=== PATIENT | male | born 2000 | race Caucasian/White ===

== ENCOUNTER 2023-11-06 20:46 | Observation (INO) ==
[2023-11-06 21:49] LABS: Adenovirus PCR Not Detected (NotDetected); Bordetella parapertussis PCR Not Detected (NotDetected); Bordetella pertussis PCR Not Detected (NotDetected); Chlamydia pneumoniae PCR Not Detected (NotDetected); Coronavirus 229E PCR Not Detected (NotDetected); Coronavirus CoV-2 (COVID19)PCR Not Detected (NotDetected); Coronavirus HKU1 PCR Not Detected (NotDetected); Coronavirus NL63 PCR Not Detected (NotDetected); Coronavirus OC43PCR Not Detected (NotDetected); Human Metapneumovirus PCR Not Detected (NotDetected); Influenza A PCR Not Detected (NotDetected); Influenza B PCR Not Detected (NotDetected); Mycoplasma pneumoniae PCR Not Detected (NotDetected); Parainfluenza Virus 1 PCR Not Detected (NotDetected); Parainfluenza Virus 2 PCR Not Detected (NotDetected); Parainfluenza Virus 3 PCR Not Detected (NotDetected); Parainfluenza Virus 4 PCR Not Detected (NotDetected); Respiratory Syncytial VirusPCR Not Detected (NotDetected); Rhinovirus/Enterovirus PCR Not Detected (NotDetected)
[2023-11-06] MEDS: ACETAMINOPHEN 500 MG TAB PO PRN (22:13)
[2023-11-06] MEDS: SODIUM CHLORIDE 0.9% 1,000 ML IV ONE (23:48)
--- NOTE | 2023-11-07 00:19 | CT Scan Report ---
Exam(s): CT HEAD Without Contrast EXAM: CT Head Without Intravenous Contrast CLINICAL HISTORY: Reason for exam: chi. TECHNIQUE: Axial computed tomography images of the head/brain without intravenous contrast. Automated exposure control was utilized for the study. A dose lowering technique was utilized adhering to the principles of ALARA. COMPARISON: None. FINDINGS: Brain: No mass effect or acute infarct. No acute hemorrhage. Ventricles: No hydrocephalus or midline shift. Bones/joints: No skull fracture. Soft tissues: No scalp hematoma. Sinuses: Mild bilateral ethmoid mucosal thickening, otherwise, clear. Mastoid air cells: No mastoid effusion. IMPRESSION: 1. No bleed, skull fracture or acute intracranial abnormality. Electronically signed by: Mayra Ríos M.D. 11/07/23 00:18 AM
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
[2023-11-07 00:35] LABS: Basophils # (auto) 0.07 K/uL (0.00-0.20); Basophils % (auto) 0.4 %; Eosinophils # (auto) 0.02 K/uL (0.00-0.50); Eosinophils % (auto) 0.1 %; Hematocrit (blood only) 39.6 % (42.0-52.0); Immature Granulocytes # (auto) 0.14 K/uL (0.01-0.20); Immature Granulocytes % (auto) 0.8 %; Lymphocytes # (auto) 1.18 K/uL (1.20-3.40); Lymphocytes % (auto) 6.9 %; Mean Corpuscular Hemoglobin 32.1 pg (25.0-34.0); Mean Corpuscular Hgb Conc 35.4 g/dL (32.0-36.0); Mean Corpuscular Volume 90.8 fL (80.0-100.0); Mean Platelet Volume 10.7 fL (9.4-12.4); Neutrophils # (auto) 14.44 K/uL (1.40-6.50); Neutrophils % (auto) 84.8 %; Platelet Count 180 K/uL (130-400); RDW Coefficient of Variation 12.8 % (11.5-14.5); RDW Standard Deviation 42.4 fL (36.4-46.3); Red Blood Count 4.36 M/uL (4.70-6.10); White Blood Count 17.05 K/ul (4.8-10.8)
[2023-11-07 00:49] LABS: Albumin Globulin Ratio 1.3 (0.9-2); Albumin Level 4.5 gm/dl (3.4-5.0); BUN Creatinine Ratio 10.2 (10-20); Bilirubin,Total 0.7 mg/dl (0.2-1.0); Creatinine Clr Calc Pharmacy 105.9 ml/min; Est GFR (African American) 112.3 ml/min; Est GFR (Non-African American) 96.9 ml/min; Globulin 3.5 gm/dl (2.5-4.0); Magnesium 1.5 mg/dl (1.7-2.4); Potassium 3.5 mmol/L (3.5-5.1)
[2023-11-07] MEDS: KETOROLAC TROMETHAMINE 15 MG/ML VIAL IV ONE (01:10)
[2023-11-07] MEDS: dexAMETHasone**PF** 10 MG/ML VIAL IV ONE (01:12)
[2023-11-07] MEDS: MAGNESIUM SULFATE / D5W 1 GM/100 ML BAG IV STA (01:43)
[2023-11-07] MEDS: CEFEPIME 2,000 MG/20 ML VIAL IV STA (03:12)
[2023-11-07] MEDS: SODIUM CHLORIDE 0.9% 1,000 ML IV ONE (03:12)
[2023-11-07 04:23] LABS: Appearance Urine Clear (Clear); Bacteria Urine Automated None Seen (None Seen); Bilirubin Urine Negative (Negative); Blood Urine Trace (Negative); Cast Urine Automated 0-2 /lpf (0-2); Color Urine Yellow; Epithelial Cell Urine Auto 0-2 /hpf (0-2); Glucose Urine UA Negative (Negative); Ketones Urine Negative (Negative); Leukocyte Esterase Urine Negative (Negative); Nitrite Urine Negative (Negative); Protein Urine Negative (Negative); RBC Urine Automated 0-2 /hpf (0-2); Specific Gravity Urine 1.008 (1.000-1.030); Urobilinogen Urine Negative (Negative); WBC Urine Automated 0-5 /hpf (0-5); pH Urine 6.5 (4.5-7.5)
--- NOTE | 2023-11-07 05:00 | History & Physical Report ---
Date of Service November 07, 2023 Assessment & Plan (1) Fever: (2) Acute sore throat: (3) CHI (closed head injury): (4) Neutrophilic leukocytosis: (5) Fatigue: (6) Elevated procalcitonin: Plan Febrile illness/acute sore throat/fatigue/neutrophilic leukocytosis/elevated procalcitonin- Meets SIRS criteria Calcitonin 11.0 WBC 17.05 with left shift From the ED received the following: Dexamethasone 10 mg IV, cefepime 2 g IV,Toradol Toradol 10 mg IV and NSS 2 L fluid bolus Patient reports that he is beginning to feel significantly improved CT scan of soft tissues of neck to assess for possible abscess/phlegmon Admit for observation due to recent closed head injury, with normal-appearing CT scan of head Azithromycin 500 mg IV daily Acetaminophen 600 mg by mouth every 6 hours as needed for mild pain or fever Admit to medical surgical bed for observation Hypomagnesemia- Magnesium 1.5 on admission Received IV supplementation from the ED. Follow-up laboratories in the a.m. History of Present Illness Chief Complaint: The patient presents to the emergency department with severe headache, sore throat, fever and history of closed head injury Primary Care Provider: [facility] The patient is a 23-year-old male with no significant past medical history, who reports that when he was at the [employer] football game last week, he had fallen and landed on his head. he had no symptoms develop until about 4 days later, when he developed a headache, and since that time, has gradually developed fevers, chills and sore throat. He does have an active social life, but denies any direct illness exposures. He typically is a healthy person otherwise Past Med/Surg History Social History Smoking Status: Never smoker Preferred Language: Azeri Feels Safe at Home: Yes Review of Systems Review of Systems: The patient denies chest pain, palpitations, shortness of breath, dyspnea on exertion, cough, lower extremity swelling, nausea, vomiting, diarrhea , constipation, abdominal pain, pelvic pain, blood in urine or stool, dysuria, urinary frequency or urgency, lightheadedness, dizziness, memory loss, loss of consciousness, rash, abnormal bruising or bleeding, imbalance, focal weakness, numbness or tingling in arms or legs, generalized arthralgias or myalgias, back or neck pain, or night sweats. The review of systems is otherwise negative other than for that already noted above, and at least 10 systems have been reviewed. Physical Exam Physical Exam: The patient is awake, alert and oriented 3, well developed and well nourished, normocephalic and atraumatic, lying in bed and in no acute distress. HEENT--PERRL, EOMI, mucous membranes and oropharynx normal Neck--supple. No JVD. No bruits. Thyroid normal, trachea midline, no adenopathy. Heart--normal S1 and S2. No murmurs, rubs or gallops. Lungs--clear bilaterally, no respiratory distress, no accessory muscle use. Abdomen--normal bowel sounds and soft. Nontender. Nondistended, no hernias or masses, no organomegaly. Extremities--no cyanosis or clubbing. No edema. There are good distal pulses b/l. Dermatologic--normal skin turgor, normal color, no abnormal lymph nodes, no rash. Neurologic--cranial nerves II through XII grossly intact. Rheumatologic--normal range of motion. Psychiatric--normal affect. Results & Data Results & Data Vital Signs (Past 12 Hours) Vital Signs Temp Pulse Pulse Resp BP BP Pulse Ox 11/07/23 04:00 70 22 119/64 96 11/07/23 03:30 77 22 116/66 96 11/07/23 03:00 81 23 123/81 95 11/07/23 01:31 84 18 128/70 94 11/07/23 00:30 80 16 115/65 96 11/07/23 00:00 88 18 124/69 96 11/06/23 22:14 37.8 C H 11/06/23 20:48 39.4 C H 107 H 19 122/76 96 O2 Del Method 11/07/23 04:00 Room Air 11/07/23 03:30 Room Air 11/07/23 03:00 Room Air 11/07/23 01:31 Room Air 11/07/23 00:30 Room Air 11/07/23 00:00 Room Air 11/06/23 22:14 11/06/23 20:48 Room Air Laboratory Results Laboratory Results WBC 17.05 K/ul (4.8-10.8) H 11/06/23 23:50 RBC 4.36 M/uL (4.70-6.10) L 11/06/23 23:50 Hgb 14.0 g/dl (14.0-18.0) 11/06/23 23:50 Hct 39.6 % (42.0-52.0) L 11/06/23 23:50 MCV 90.8 fL (80.0-100.0) 11/06/23 23:50 MCH 32.1 pg (25.0-34.0) 11/06/23 23:50 MCHC 35.4 g/dL (32.0-36.0) 11/06/23 23:50 RDW Std Deviation 42.4 fL (36.4-46.3) 11/06/23 23:50 RDW Coeff of Darryl 12.8 % (11.5-14.5) 11/06/23 23:50 Plt Count 180 K/uL (130-400) 11/06/23 23:50 MPV 10.7 fL (9.4-12.4) 11/06/23 23:50 Immature Gran % (Auto) 0.8 % 11/06/23 23:50 Neut % (Auto) 84.8 % 11/06/23 23:50 Lymph % (Auto) 6.9 % 11/06/23 23:50 [place] % (Auto) 7.0 % 11/06/23 23:50 Eos % (Auto) 0.1 % 11/06/23 23:50 Baso % (Auto) 0.4 % 11/06/23 23:50 Neut # (Auto) 14.44 K/uL (1.40-6.50) H 11/06/23 23:50 Lymph # (Auto) 1.18 K/uL (1.20-3.40) L 11/06/23 23:50 [place] # (Auto) 1.20 K/uL (0.11-0.59) H 11/06/23 23:50 Eos # (Auto) 0.02 K/uL (0.00-0.50) 11/06/23 23:50 Baso # (Auto) 0.07 K/uL (0.00-0.20) 11/06/23 23:50 Immature Gran # (Auto) 0.14 K/uL (0.01-0.20) 11/06/23 23:50 Sodium 132 mmol/L (136-145) L 11/06/23 23:50 Potassium 3.5 mmol/L (3.5-5.1) 11/06/23 23:50 Chloride 96 mmol/L (98-107) L 11/06/23 23:50 Carbon Dioxide 27 mmol/L (21-32) 11/06/23 23:50 Anion Gap 9 (3-11) 11/06/23 23:50 BUN 11 mg/dl (6-23) 11/06/23 23:50 Creatinine 1.08 mg/dl (0.6-1.4) 11/06/23 23:50 Est Cr Clr Drug Dosing 105.9 ml/min 11/06/23 23:50 Est GFR ( Amer) 112.3 ml/min 11/06/23 23:50 Est GFR (Non-Af Amer) 96.9 ml/min 11/06/23 23:50 BUN/Creatinine Ratio 10.2 (10-20) 11/06/23 23:50 Glucose 112 mg/dl (70-99(Fasting)) H 11/06/23 23:50 Lactate 0.8 mmol/L (0.4-2.0) 11/07/23 02:54 Calcium 10.0 mg/dl (8.6-10.3) 11/06/23 23:50 Magnesium 1.5 mg/dl (1.7-2.4) L 11/06/23 23:50 Total Bilirubin 0.7 mg/dl (0.2-1.0) 11/06/23 23:50 AST 20 U/L (13-39) 11/06/23 23:50 ALT 16 U/L (7-52) 11/06/23 23:50 Alkaline Phosphatase 36 U/L (34-104) 11/06/23 23:50 Troponin I High Sens 5.0 pg/ml (0-20) 11/06/23 23:50 Total Protein 8.0 gm/dl (6.0-8.3) 11/06/23 23:50 Albumin 4.5 gm/dl (3.4-5.0) 11/06/23 23:50 Globulin 3.5 gm/dl (2.5-4.0) 11/06/23 23:50 Albumin/Globulin Ratio 1.3 (0.9-2) 11/06/23 23:50 Lipase 7 U/L (11-82) L 11/06/23 23:50 Procalcitonin 11.00 ng/ml (0-0.5) H 11/06/23 23:50 Urine Color Yellow 11/07/23 04:08 Urine Appearance Clear (Clear) 11/07/23 04:08 Urine pH 6.5 (4.5-7.5) 11/07/23 04:08 Ur Specific [place] 1.008 (1.000-1.030) 11/07/23 04:08 Urine Protein Negative (Negative) 11/07/23 04:08 Urine Glucose (UA) Negative (Negative) 11/07/23 04:08 Urine Ketones Negative (Negative) 11/07/23 04:08 Urine Blood Trace (Negative) H 11/07/23 04:08 Urine Nitrite Negative (Negative) 11/07/23 04:08 Urine Bilirubin Negative (Negative) 11/07/23 04:08 Urine Urobilinogen Negative (Negative) 11/07/23 04:08 Ur Leukocyte Esterase Negative (Negative) 11/07/23 04:08 Urine WBC (Auto) 0-5 /hpf (0-5) 11/07/23 04:08 Urine RBC (Auto) 0-2 /hpf (0-2) 11/07/23 04:08 U Hyaline Cast (Auto) 0-2 /lpf (0-2) 11/07/23 04:08 U Epithel Cells (Auto) 0-2 /hpf (0-2) 11/07/23 04:08 Urine Bacteria (Auto) None Seen (None Seen) 11/07/23 04:08 Adenovirus (PCR) Not Detected (NotDetected) 11/06/23 20:54 Anaplasma Smear Cancelled 11/06/23 23:50 Anaplasma Smear See Comment 11/06/23 23:50 Babesia Smear Cancelled 11/06/23 23:50 Babesia Smear See Comment 11/06/23 23:50 B. pertussis DNA (PCR) Not Detected (NotDetected) 11/06/23 20:54 B.parapertussis DNA PCR Not Detected (NotDetected) 11/06/23 20:54 Lyme Disease Screen Negative (Negative) 11/06/23 23:50 C. pneumoniae DNA (PCR) Not Detected (NotDetected) 11/06/23 20:54 Coronavirus OC43 (PCR) Not Detected (NotDetected) 11/06/23 20:54 Coronavirus HKU1 (PCR) Not Detected (NotDetected) 11/06/23 20:54 Coronavirus 229E (PCR) Not Detected (NotDetected) 11/06/23 20:54 SARS-CoV-2 (PCR) Not Detected (NotDetected) 11/06/23 20:54 Coronavirus NL63 (PCR) Not Detected (NotDetected) 11/06/23 20:54 Monoscreen Negative (Negative) 11/06/23 23:50 Human Metapneumovir PCR Not Detected (NotDetected) 11/06/23 20:54 Influenza Type A (PCR) Not Detected (NotDetected) 11/06/23 20:54 Influenza Type B (PCR) Not Detected (NotDetected) 11/06/23 20:54 M. pneumoniae (PCR) Not Detected (NotDetected) 11/06/23 20:54 Parainfluenza 1 (PCR) Not Detected (NotDetected) 11/06/23 20:54 Parainfluenza 2 (PCR) Not Detected (NotDetected) 11/06/23 20:54 Parainfluenza 3 (PCR) Not Detected (NotDetected) 11/06/23 20:54 Parainfluenza 4 (PCR) Not Detected (NotDetected) 11/06/23 20:54 RSV (PCR) Not Detected (NotDetected) 11/06/23 20:54 Entero/Rhino (PCR) Not Detected (NotDetected) 11/06/23 20:54 Group A Strep (PCR) NOT DETECTED (NotDetected) 11/07/23 00:[address] 11/06/23 23:22 Exam(s): CT HEAD Without Contrast EXAM: CT Head Without Intravenous Contrast CLINICAL HISTORY: Reason for exam: chi. TECHNIQUE: Axial computed tomography images of the head/brain without intravenous contrast. Automated exposure control was utilized for the study. A dose lowering technique was utilized adhering to the principles of ALARA. COMPARISON: None. FINDINGS: Brain: No mass effect or acute infarct. No acute hemorrhage. Ventricles: No hydrocephalus or midline shift. Bones/joints: No skull fracture. Soft tissues: No scalp hematoma. Sinuses: Mild bilateral ethmoid mucosal thickening, otherwise, clear. Mastoid air cells: No mastoid effusion. IMPRESSION: 1. No bleed, skull fracture or acute intracranial abnormality. Electronically signed by: Mayra Ríos M.D. 11/07/23 00:18 AM Code Status & VTE Plan Code Status Full code VTE Prophylaxis Plan VTE Prophylaxis will be ordered: Yes PG Care Time/CCT Total # of Minutes Spent Total Time Spent with Patient: Total time spent is greater than 50% in coordination of care (as documented) at patient's floor/unit and/or counseling patient: Coding Level of Care Code 29147 INT INP/OBS CARE 2/55MIN Diagnoses Fever R50.9 Acute sore throat J02.9 CHI (closed head injury) S09.90XA Neutrophilic leukocytosis D72.9 Fatigue R53.83 Elevated procalcitonin R79.89
[2023-11-07] MEDS: OPTIRAY 320 100ml IV ONE (05:22)
[2023-11-07] MEDS ORDERED: ONDANSETRON INJ 2 MG/ML 2 ML VIAL IV PRN (05:51)
[2023-11-07] MEDS: Patient's ALLERGY Info needs ENTERED SCH (06:21)
[2023-11-07] MEDS: methylPREDNISolone 40 MG in SYRINGE 0 ML IV SCH (06:35)
[2023-11-07] MEDS: ACETAMINOPHEN 325 MG TAB PO PRN (06:35)
--- NOTE | 2023-11-07 06:48 | CT Scan Report ---
Exam(s): CT NECK With Contrast IV Amt: 93 ml opti 320 EXAM: CT Neck With Intravenous Contrast CLINICAL HISTORY: Reason for exam: sore throat, fever. TECHNIQUE: Axial computed tomography images of the neck with intravenous contrast. CTDI is 17.75 mGy and DLP is 551.73 mGy-cm. Automated exposure control was utilized for the study. A dose lowering technique was utilized adhering to the principles of ALARA. CONTRAST: Patient received 93 ml opti 320 of IV contrast COMPARISON: No relevant prior studies available. FINDINGS: Oropharynx: Unremarkable. No significant tonsillar enlargement. No peritonsillar abscess. Hypopharynx: Unremarkable. Larynx: Unremarkable. Normal epiglottis. Trachea: Unremarkable. Retropharyngeal space: Unremarkable. Submandibular/parotid glands: Unremarkable. Glands are normal in size. Thyroid: 4 mm nodule seen in the left lobe of the thyroid gland. Bones/joints: No acute fracture. Soft tissues: Unremarkable. Vasculature: Right vertebral artery is dominant. Lymph nodes: Unremarkable. No lymphadenopathy. Sinuses: Mucous retention cyst seen in the left maxillary sinus. Mucosal thickening seen in bilateral maxillary sinuses and ethmoidal sinuses. Lung apices: Unremarkable as visualized. IMPRESSION: No acute intracranial arterial occlusion Electronically signed by: Ankit Baptiste MD 11/07/23 06:47 AM
--- NOTE | 2023-11-07 07:01 | XRay Report ---
XR chest 1V portable HISTORY: 23 years-old Male fever acute fever COMPARISON: None TECHNIQUE: AP view of the chest FINDINGS: Cardiomediastinal and hilar silhouettes are within normal limits. There is no pneumothorax, pleural e ffusion, airspace consolidation or pulmonary edema. The bones of the chest appear intact. IMPRESSION: No acute process. ACT 112: Negative or not required by law. The above report was generated using voice recognition software. It may contain grammatical, syntax o r spelling errors. Electronically signed by: Jasper Morrison M.D. 11/07/2023 6:59 AM
[2023-11-07 11:55] LABS: Hematocrit (blood only) 39.3 % (42.0-52.0); Hemoglobin 13.4 g/dl (14.0-18.0); Mean Corpuscular Hemoglobin 31.5 pg (25.0-34.0); Mean Corpuscular Hgb Conc 34.1 g/dL (32.0-36.0); Mean Corpuscular Volume 92.3 fL (80.0-100.0); Mean Platelet Volume 10.5 fL (9.4-12.4); Platelet Count 177 K/uL (130-400); RDW Coefficient of Variation 13.1 % (11.5-14.5); RDW Standard Deviation 44.2 fL (36.4-46.3); Red Blood Count 4.26 M/uL (4.70-6.10); White Blood Count 17.25 K/ul (4.8-10.8)
[2023-11-07 12:07] LABS: Calcium 9.7 mg/dl (8.6-10.3); Creatinine Clr Calc Pharmacy 123.5 ml/min; Est GFR (African American) 134.6 ml/min; Est GFR (Non-African American) 116.1 ml/min; Magnesium 2.2 mg/dl (1.7-2.4); Potassium 4.6 mmol/L (3.5-5.1)
[2023-11-07 12:22] LABS: Basophils # (auto) 0.02 K/uL (0.00-0.20); Basophils % (auto) 0.1 %; Immature Granulocytes % (auto) 1.7 %; Lymphocytes % (auto) 4.1 %; Monocytes # (auto) 0.21 K/uL (0.11-0.59); Monocytes % (auto) 1.2 %; Neutrophils # (auto) 16.02 K/uL (1.40-6.50); Neutrophils % (auto) 92.9 %; Polychromasia 1+
[2023-11-07] MEDS: AZITHROMYCIN 500 MG in DEXTROSE 5% 250 ML IV SCH (14:20)
--- NOTE | 2023-11-07 14:27 | Hospitalist Progress Note ---
Date of Service November 07, 2023 Assessment & Plan (1) Acute sore throat: Plan: Meets SIRS criteria - on admission Calcitonin 11.0, WBC 17.[address] neck: no abscess, mucosal thickening in bilateral maxillary sinuses and ethmoid sinuses Continue Azithromycin 500 mg IV daily Throat culture: pending Blood culture: pending received IV mag - now 2.2. AM CBC, BMP (2) CHI (closed head injury): Plan: Occured 10/28 - ground level fall, no LOC - CT head: no bleed, skull fracture or acute intracranial abnormality Plan Dispo: continue inpatient stay, hopeful for discharge tomorrow DVT proh: low risk, encourage ambulation Admission and Anticipated Discharge Date Admission Date: November 07, 2023 Subjective Resting in bed - feeling better, headache has improved sore throat is main complaint but overall is better was able to eat finally getting some rest Review of Systems Review of Systems: All systems reviewed & are unremarkable except as noted in Subjective Physical Exam Physical Exam: General: NAD, VS as above, appears well HEENT: no facial edema, mild erythema to pharynx Resp: normal respiratory effort, lungs clear to auscultation CV: RRR, no murmur, Abd: normal bowel sounds, non tender, no hepatosplenomegaly Neuro: A&O x3, Skin: diaphoretic Results & Data Results & Data Vital Signs (Past 12 Hours) Vital Signs Temp Pulse Resp BP Pulse Ox O2 Del Method 11/07/23 07:21 36.8 C 75 16 136/76 97 Room Air 11/07/23 06:00 Room Air 11/07/23 06:00 36.7 C 87 19 134/83 98 Room Air 11/07/23 05:51 36.7 C 87 19 134/83 98 Room Air 11/07/23 05:34 82 16 133/68 96 Room Air 11/07/23 04:00 70 22 119/64 96 Room Air 11/07/23 03:30 36.6 C 11/07/23 03:30 77 22 116/66 96 Room Air 11/07/23 03:00 81 23 123/81 95 Room Air PG Care Time/CCT Total # of Minutes Spent Total Time Spent with Patient: Total time spent is greater than 50% in coordination of care (as documented) at patient's floor/unit and/or counseling patient: Coding Level of Care Code None Diagnoses Acute sore throat J02.9 CHI (closed head injury) S09.90XA
[2023-11-08 07:49] LABS: Basophils # (auto) 0.02 K/uL (0.00-0.20); Basophils % (auto) 0.1 %; Hematocrit (blood only) 42.3 % (42.0-52.0); Hemoglobin 14.2 g/dl (14.0-18.0); Immature Granulocytes # (auto) 0.18 K/uL (0.01-0.20); Lymphocytes % (auto) 8.8 %; Mean Corpuscular Hemoglobin 31.3 pg (25.0-34.0); Mean Corpuscular Hgb Conc 33.6 g/dL (32.0-36.0); Mean Corpuscular Volume 93.2 fL (80.0-100.0); Mean Platelet Volume 10.5 fL (9.4-12.4); Monocytes # (auto) 1.02 K/uL (0.11-0.59); Monocytes % (auto) 5.6 %; Neutrophils # (auto) 15.38 K/uL (1.40-6.50); Neutrophils % (auto) 84.5 %; Platelet Count 218 K/uL (130-400); RDW Standard Deviation 44.5 fL (36.4-46.3); Red Blood Count 4.54 M/uL (4.70-6.10)
[2023-11-08 08:11] LABS: Albumin Globulin Ratio 1.2 (0.9-2); Albumin Level 4.3 gm/dl (3.4-5.0); BUN Creatinine Ratio 15.7 (10-20); Bilirubin,Total 0.3 mg/dl (0.2-1.0); Calcium 9.8 mg/dl (8.6-10.3); Creatinine Clr Calc Pharmacy 138.4 ml/min; Est GFR (African American) 144.8 ml/min; Est GFR (Non-African American) 124.9 ml/min; Globulin 3.7 gm/dl (2.5-4.0); Magnesium 2.1 mg/dl (1.7-2.4); Potassium 4.2 mmol/L (3.5-5.1)
--- NOTE | 2023-11-08 13:08 | Discharge Summary ---
Discharge Summary Date of Service November 08, 2023 Notes For Next Care Provider Admitted with febrile illness, likely HEENT - with sore throat (throat culture done after 2 doses of antibiotics) and recent head injury from fall from standing height. Patient with elevated WBCs, but did receive steroids Pro Calcitonin decreasing on day of discharge. Overall source is unclear, potentially has sinuses discharged with 1 additional day of azithromycin and 8 days of Augmentin Recommended close follow-up with PCP and if worsening to see Dr. Castillo of [facility] Blood cultures pending Medication Changes From Visit Augmentin twice daily x 8 days Azithromycin x 1 day Admission HPI Per Admitting Provider The patient is a 23-year-old male with no significant past medical history, who reports that when he was at the [employer] game last week, he had fallen and landed on his head. he had no symptoms develop until about 4 days later, when he developed a headache, and since that time, has gradually developed fevers, chills and sore throat. He does have an active social life, but denies any direct illness exposures. He typically is a healthy person otherwise Principal Dx & Hospital Course #1 = Principal Diagnosis (1) Acute sore throat: Meets SIRS criteria - on admission Calcitonin 11.0, WBC 17.[address] neck: no abscess, mucosal thickening in bilateral maxillary sinuses and ethmoid sinuses Recieved IV Azithromycin - discharged with one additional day and AUgmentin BID Throat culture: Normal throat culture, this was taken after 2 doses of antibiotics Blood culture: No growth at 24 hours received IV mag - now 2.2. Dispo discharge to home today with close PCP follow-up (2) CHI (closed head injury): Occured 10/28 - ground level fall, no LOC - CT head: no bleed, skull fracture or acute intracranial abnormality Headache has resolved Plan Dispo: discharge to home today Discharge Exam General: NAD, VS as above, appears better than yesterday HEENT: no facial edema, no erythema or tonsillar swelling Resp: normal respiratory effort, lungs clear to auscultation CV: RRR, no murmur, Abd: normal bowel sounds, non tender, no hepatosplenomegaly Neuro: A&O x3, Updated Medication List Medication Instructions Recorded Confirmed Type amoxicillin 875 mg-potassium 1 tab PO BID 8 days #16 tabs 11/08/23 Rx clavulanate 125 mg tablet azithromycin 500 mg tablet 500 mg PO DAILY #1 tab 11/08/23 Rx Hospital Stay Data Consultations 11/07/23 05:36 ED Decision to Admit Stat Diagnostic Imagining Performed Chest X-Ray 11/06/23 23:21 XR chest 1V portable HISTORY: 23 years-old Male fever acute fever COMPARISON: None TECHNIQUE: AP view of the chest FINDINGS: Cardiomediastinal and hilar silhouettes are within normal limits. There is no pneumothorax, pleural effusion, airspace consolidation or pulmonary edema. The bones of the chest appear intact. IMPRESSION: No acute process. ACT 112: Negative or not required by law. The above report was generated using voice recognition software. It may contain grammatical, syntax or spelling errors. Electronically signed by: Jasper Morrison M.D. 11/07/2023 6:[address] 11/06/23 23:22 Exam(s): CT HEAD Without Contrast EXAM: CT Head Without Intravenous Contrast CLINICAL HISTORY: Reason for exam: chi. TECHNIQUE: Axial computed tomography images of the head/brain without intravenous contrast. Automated exposure control was utilized for the study. A dose lowering technique was utilized adhering to the principles of ALARA. COMPARISON: None. FINDINGS: Brain: No mass effect or acute infarct. No acute hemorrhage. Ventricles: No hydrocephalus or midline shift. Bones/joints: No skull fracture. Soft tissues: No scalp hematoma. Sinuses: Mild bilateral ethmoid mucosal thickening, otherwise, clear. Mastoid air cells: No mastoid effusion. IMPRESSION: 1. No bleed, skull fracture or acute intracranial abnormality. Electronically signed by: Mayra Ríos M.D. 11/07/23 00:18 AM Soft Tissue Neck CT 11/07/23 04:31 Exam(s): CT NECK With Contrast IV Amt: 93 ml opti 320 EXAM: CT Neck With Intravenous Contrast CLINICAL HISTORY: Reason for exam: sore throat, fever. TECHNIQUE: Axial computed tomography images of the neck with intravenous contrast. CTDI is 17.75 mGy and DLP is 551.73 mGy-cm. Automated exposure control was utilized for the study. A dose lowering technique was utilized adhering to the principles of ALARA. CONTRAST: Patient received 93 ml opti 320 of IV contrast COMPARISON: No relevant prior studies available. FINDINGS: Oropharynx: Unremarkable. No significant tonsillar enlargement. No peritonsillar abscess. Hypopharynx: Unremarkable. Larynx: Unremarkable. Normal epiglottis. Trachea: Unremarkable. Retropharyngeal space: Unremarkable. Submandibular/parotid glands: Unremarkable. Glands are normal in size. Thyroid: 4 mm nodule seen in the left lobe of the thyroid gland. Bones/joints: No acute fracture. Soft tissues: Unremarkable. Vasculature: Right vertebral artery is dominant. Lymph nodes: Unremarkable. No lymphadenopathy. Sinuses: Mucous retention cyst seen in the left maxillary sinus. Mucosal thickening seen in bilateral maxillary sinuses and ethmoidal sinuses. Lung apices: Unremarkable as visualized. IMPRESSION: No acute intracranial arterial occlusion Electronically signed by: Ankit Baptiste MD 11/07/23 06:47 AM Pending Results Patient Have Any Pending Studies at Discharge: Yes (blood cultures ) Discharge Instructions Given to Patient (Per Discharging Provider) Mr. Bryant, You were hospitalized with an acute infection, a few days after suffering a fall from ground level, and possible head injury. Head CT did not reveal any acute abnormalities. You also had a sore throat that improved with IV steroids and antibiotics. You will be discharged with oral antibiotics. Start both of these 11/08 and follow instructions on package. You will need to follow up with [facility] later this week - their contact information is above, please call them [facility]. Recommend repeat blood work later this week - CBC. Your Blood cultures are still pending - these take 5 days to result. S should be able to help you get the final results. If you have worsening throat pain or sinus pain - I have attached the information for Dr. Castillo and will make him aware of your case, would follow up with him if things are worsening. Make sure you are staying well hydrated and eating well balanced meals. Avoid alcohol or smoking during this time of healing. Activity: You can do normal everyday activities as your body allows. Take rest breaks if you feel tired. Do not overexert. Stop activity if you have pain, shortness of breath or feel dizzy. Follow-up appointments: Make an appointment with your primary care physician within one week of discharge. A copy of this summary will be sent to them. Every time you see your primary care physician, or any other doctor, bring your medication list, and a list of questions. CONTACT YOUR PRIMARY CARE PROVIDER if you experience any of the following: Shortness of breath or difficulty breathing Fevers or chills Feeling tired with normal activity or experiencing dizziness or fainting Difficulty following your treatment plan, or difficulty taking medications CALL 911 OR GO TO THE EMERGENCY DEPARTMENT if you experience any of the following: Severe abdominal pain or nausea/vomiting Severe chest pain, or chest pain that radiates (moves) to your jaw or arm Sudden, severe shortness of breath or difficulty breathing Thank you for allowing us to participate in your care. Total Time Total Time Spent Total Time Spent (In Minutes): Time spend day of discharge 40 minutes including direct patient care, medication reconciliation, documentation, review of labs and images, and coordination of care. Coding Level of Care Code 21515 INP/OBS DISCH >30 MIN Diagnoses Acute sore throat J02.9 CHI (closed head injury) S09.90XA
[2023-11-10 02:52] LABS: Babesia microti DNA Not Detected (Not Detected)
== END 2023-11-08 15:25 | disposition home or self-care (01) ==
LOC: ED 20:46 → 3N 20:46 → SUATTDRO 11-07 04:59 → 3N 11-07 05:36